=== PATIENT | female | born 1965 | race Caucasian/White ===

== ENCOUNTER 2017-06-17 20:00 | Emergency (ER) | payer BC ==
[2017-06-17] MEDS ORDERED: Ibuprofen TAB* 200 MG PO ONE (21:21)
--- NOTE | 2017-06-17 21:22 | UC ---
Hand/Wrist HPI - HPI Summary HPI Summary: 51 yo female fell today going down stairs got right hand caught btw rail and wall right handed has not taken anything for pain - History Of Current Complaint Chief Complaint: UCUpperExtremity Stated Complaint: RIGHT HAND INJURY Time Seen by Provider: 06/17/17 21:17 Hx Obtained From: Patient Onset/Duration: Sudden Onset, Lasting Hours Severity Initially: Severe Severity Currently: Severe Pain Intensity: 8 Pain Scale Used: 0-10 Numeric Character Of Pain: Sharp, Aching, Throbbing Aggravating Factor(s): Movement Alleviating Factor(s): Ice, Elevation Associated Signs And Symptoms: Positive: Swelling Related History: Dominant Hand Right - Allergies/Home Medications Allergies/Adverse Reactions: Allergies Allergy/AdvReac Type Severity Reaction Status Date / Time Penicillins Allergy Hives Verified 06/17/17 21:00 Home Medications: Home Medications NK [No Home Medications Reported] 06/17/17 [History Confirmed 06/17/17] PMH/Surg Hx/FS Hx/Imm Hx Previously Healthy: Yes Cardiovascular History: Hypertension - not on meds - Surgical History Surgical History: Yes Surgery Procedure, Year, and Place: Hysterectomy. Gallbladder - Family History Known Family History: Positive: Hypertension - Social History Alcohol Use: Weekly Substance Use Type: None Smoking Status (MU): Light Every Day Tobacco Smoker Type: Cigarettes Amount Used/How Often: 8 CIGS/DAY Review of Systems Constitutional: Negative Skin: Bruising Eyes: Negative ENT: Negative Respiratory: Negative Cardiovascular: Negative Gastrointestinal: Negative Genitourinary: Negative Motor: Negative Neurovascular: Negative Musculoskeletal: Edema - dorsum of right hand Neurological: Negative Psychological: Negative Is Patient Immunocompromised?: No All Other Systems Reviewed And Are Negative: Yes Physical Exam Triage Information Reviewed: Yes Appearance: Well-Appearing, Well-Nourished, Pain Distress Vital Signs: Initial Vital Signs Temp 98.1 F 06/17/17 20:54 Pulse 80 06/17/17 20:54 Resp 16 06/17/17 20:54 BP 172/92 06/17/17 20:54 Pulse Ox 98 06/17/17 20:54 Eyes: Positive: Conjunctiva Clear ENT: Positive: Hearing grossly normal. Negative: Nasal congestion, Nasal drainage, Trismus, Muffled voice, Hoarse voice Neck: Positive: Supple Respiratory: Positive: Lungs clear, Normal breath sounds, No respiratory distress, No accessory muscle use Cardiovascular: Positive: RRR, No Murmur Musculoskeletal: Positive: ROM Limited @ - right finger, Edema @ - dorsum or right hand Neurological: Positive: Alert Psychological Exam: Normal Skin Exam: Normal Diagnostics - Radiology No standard instances Xray Interpretation: No Acute Changes Radiology Interpretation Completed By: Radiologist Hand/Wrist Course/Dx - Differential Dx/Diagnosis Provider Diagnoses: right hand contusion/sprain Discharge - Sign-Out/Discharge Documenting (check all that apply): Discharge - Discharge Plan Condition: Stable Disposition: HOME Patient Education Materials: Sprain (ED), Contusion in Adults (ED) Referrals: Jorge Cohen MD [Medical Doctor] - As Soon As Possible Additional Instructions: rest elevate cock up splint advil call you MD to restart you BP meds - Billing Disposition and Condition Condition: STABLE Disposition: HOME Images Hands: 1 - dorsal hand edema
--- NOTE | 2017-06-17 22:01 | RAD ---
INDICATION: Right hand injury. TECHNIQUE: 4 views of the right hand were obtained. FINDINGS: There is ulnar minus variance of 5 mm. Bones are otherwise in normal alignment. No fracture is seen. Joint spaces appear maintained. IMPRESSION: NO EVIDENCE FOR FRACTURE.
== END 2017-06-17 22:20 | disposition home or self-care (01) ==
LOC: UCCORT 20:00
DX: S63.91XA Sprain of unspecified part of right wrist and hand, initial encounter (principal); I10 Essential (primary) hypertension; F17.210 Nicotine dependence, cigarettes, uncomplicated; Z88.0 Allergy status to penicillin; W23.0XXA Caught, crushed, jammed, or pinched between moving objects, initial encounter; Y92.9 Unspecified place or not applicable
CPT/HCPCS: 99203; A9270-GY; G0463

== ENCOUNTER 2022-09-09 15:35 | Inpatient (IN) ==
[2022-09-09 16:14] LABS: ABS Basophils 0.1 10^3/uL (0.0-0.1); ABS Eosinophils 0.2 10^3/uL (0.0-0.5); ABS Monocytes 0.5 10^3/uL (0.0-0.9); ABS Neutrophils 5.2 10^3/uL (1.5-7.6); ABS Nucleated RBC 0.01 10^3/ul; Eosinophil % 2.2 %; Hematocrit 45.9 % (35-45); Hemoglobin 15.6 g/dL (11.5-14.3); Lymphocyte % 33.4 %; Mean Corpuscular Hemoglobin 30.9 pg (27-33); Mean Corpuscular Volume 90.7 fL (80-97); Mean Platelet Volume 8.4 fL (7.5-11.2); Nucleated Red Blood Cells % 0.1 /100 WBC (0.0-0.4); Platelet Count 234 10^3/uL (150-450); Red Blood Count 5.06 10^6/uL (3.63-4.92); Red Cell Distribution Width 14.4 % (12-17); White Blood Count 9.1 10^3/uL (3.8-11.8)
[2022-09-09 16:20] LABS: INR 1.19 (0.88-1.18)
[2022-09-09 16:36] LABS: Albumin 4.1 g/dL (3.2-5.2); Albumin/Globulin Ratio 1.2 (1-3); Calcium 9.5 mg/dL (8.6-10.3); Creatinine, Serum 0.42 mg/dL (0.51-0.95); Globulin 3.5 g/dL (2-4); Potassium 2.8 mmol/L (3.5-5.0); Total Bilirubin 0.9 mg/dL (0.2-1.0); Total Protein 7.6 g/dL (6.4-8.9)
[2022-09-09] MEDS ORDERED: Potassium EFFERVES 25 meq TAB PO ONE (16:39)
[2022-09-09] MEDS: KCL 20 MEQ/100 ML IVPREMIX 20 MEQ/100 ML BAG IV SCH ×2 (17:00→18:57)
[2022-09-09 17:15] LABS: Magnesium 1.6 mg/dL (1.9-2.7)
[2022-09-09] MEDS ORDERED: Magnesium Sulfate 2 gm BAG 2 GM/50 ML BAG IVPB ONE (17:27)
[2022-09-09 17:52] LABS: High Sensitivity Troponin 1 Hr 9 pg/mL (<15)
[2022-09-09] MEDS ORDERED: Thiamine 100 MG/ML 2 ml VIAL (200 mg) IM ONE (19:20)
[2022-09-09] MEDS ORDERED: Lorazepam PYXIS KEY PRN (19:35)
[2022-09-09] MEDS ORDERED: LORazepam 2 mg VIAL 1 ml IM SCH (20:00)
[2022-09-09] MEDS: Multivitamins/Minerals TAB PO SCH (20:18)
[2022-09-09] MEDS ORDERED: Heparin 5000 UNITS/ML 1 mL VIAL SUBCUT ONE (22:01)
[2022-09-09] MEDS ORDERED: Labetalol IV 5 MG/ML 20 ml VIAL IV PUSH PRN (22:31)
[2022-09-09] MEDS ORDERED: NS 0.9% 1000 ml BAG 1,000 ML IV SCH (23:55)
[2022-09-10 04:45] LABS: Creatinine, Serum 0.53 mg/dL (0.51-0.95); Potassium 3.9 mmol/L (3.5-5.0); eGFR CKD-EPI 107.8 (>60)
[2022-09-10] MEDS ORDERED: Potassium Chlor 10 meq TAB PO ONE (07:39)
[2022-09-10] MEDS ORDERED: Heparin 2 UNITS/ML 1000 mls 2,000 ML IV ONE (09:35)
[2022-09-10] MEDS ORDERED: Heparin 1,000 UNIT/ML 10 ml (10,000 UNITS) CATHLAB/DIALYSIS ONE (09:35)
[2022-09-10] MEDS ORDERED: nitroGLYCERIN DRIP 25,000 MCG/250 ML BTL ONE (09:35)
[2022-09-10] MEDS ORDERED: VERAPAMIL 2.5 MG/ML 2 ML VIAL ** 5 mg/2 ml ONE (09:35)
[2022-09-10] MEDS ORDERED: Midazolam 5 mg/5 ml VIAL 1 mg/ml 5 ml VIAL (5 mg) ONE (09:35)
[2022-09-10] MEDS ORDERED: fentaNYL 100 mcg/2 ml 50 MCG/ML VIAL ONE (09:35)
[2022-09-10] MEDS ORDERED: Iohexol 350 (CONTRAST) 100 ML PAK IV ONE (09:36)
[2022-09-10] MEDS ORDERED: Iohexol 350 (CONTRAST) 200 ML MDV IV ONE (09:36)
[2022-09-10] MEDS ORDERED: Lidocaine 1% MPF 5 ML VIAL ONE (09:36)
[2022-09-10] MEDS ORDERED: Bivalirudin 250 MG VIAL ONE (10:32)
[2022-09-10] MEDS ORDERED: Metoprolol Tartrate 5 mg VIAL 5 ml VIAL (1 mg/ml) ONE (10:49)
[2022-09-10 12:46] LABS: ABS Basophils 0.1 10^3/uL (0.0-0.1); ABS Eosinophils 0.1 10^3/uL (0.0-0.5); ABS Lymphocytes 2.8 10^3/uL (1.0-4.8); ABS Monocytes 0.4 10^3/uL (0.0-0.9); ABS Neutrophils 4.9 10^3/uL (1.5-7.6); ABS Nucleated RBC 0.01 10^3/ul; Eosinophil % 1.8 %; Hematocrit 45.4 % (35-45); Hemoglobin 15.4 g/dL (11.5-14.3); Lymphocyte % 33.8 %; Mean Corpuscular Hemoglobin 30.9 pg (27-33); Mean Corpuscular Hgb Conc 33.9 g/dL (31-36); Mean Platelet Volume 8.4 fL (7.5-11.2); Nucleated Red Blood Cells % 0.1 /100 WBC (0.0-0.4); Platelet Count 227 10^3/uL (150-450); Red Blood Count 4.99 10^6/uL (3.63-4.92); Red Cell Distribution Width 14.6 % (12-17); White Blood Count 8.4 10^3/uL (3.8-11.8)
[2022-09-10] MEDS ORDERED: Lactated Ringers 1000 ml BAG 1,000 ML IV ONE (12:53)
[2022-09-10 13:06] LABS: Calcium 9.1 mg/dL (8.6-10.3); Creatinine, Serum 0.42 mg/dL (0.51-0.95); Potassium 3.8 mmol/L (3.5-5.0)
[2022-09-10] MEDS ORDERED: hydrALAZINE 20 mg/ml 1 ML Vial IV IV SLOW PU PRN ×3 (13:24→17:47)
[2022-09-10] MEDS ORDERED: Labetalol IV 5 MG/ML 20 ml VIAL IV PUSH PRN (13:24)
[2022-09-10] MEDS: Multivitamins/Minerals TAB PO SCH (13:43)
[2022-09-10 14:02] LABS: High Sensitivity Troponin 1 Hr 10 pg/mL (<15)
[2022-09-10 20:05] LABS: ABS Basophils 0.1 10^3/uL (0.0-0.1); ABS Eosinophils 0.2 10^3/uL (0.0-0.5); ABS Lymphocytes 2.4 10^3/uL (1.0-4.8); ABS Monocytes 0.6 10^3/uL (0.0-0.9); ABS Neutrophils 6.6 10^3/uL (1.5-7.6); ABS Nucleated RBC 0.01 10^3/ul; Eosinophil % 2.2 %; Hematocrit 40.8 % (35-45); Hemoglobin 13.7 g/dL (11.5-14.3); Mean Corpuscular Hemoglobin 30.8 pg (27-33); Mean Corpuscular Hgb Conc 33.5 g/dL (31-36); Mean Corpuscular Volume 91.9 fL (80-97); Mean Platelet Volume 8.3 fL (7.5-11.2); Nucleated Red Blood Cells % 0.1 /100 WBC (0.0-0.4); Platelet Count 226 10^3/uL (150-450); Red Blood Count 4.44 10^6/uL (3.63-4.92); Red Cell Distribution Width 14.8 % (12-17); White Blood Count 9.8 10^3/uL (3.8-11.8)
[2022-09-10] MEDS ORDERED: Iohexol 350 (CONTRAST) 500 ML MDV IV ONE (20:43)
[2022-09-10] MEDS ORDERED: Pantoprazole VIAL 40 MG VIAL IV ONE (21:00)
[2022-09-10] MEDS: Pantoprazole 80 mg in NS BAG 80 MG/250 ML BAG IV SCH (21:02)
[2022-09-10 21:29] LABS: Hematocrit 29.2 % (35-45); Hemoglobin 9.5 g/dL (11.5-14.3)
[2022-09-10] MEDS ORDERED: Heparin 5000 UNITS/ML 1 mL VIAL SUBCUT SCH (22:00)
[2022-09-10 22:31] LABS: Hematocrit 41.9 % (35-45); Hemoglobin 14.2 g/dL (11.5-14.3)
[2022-09-10] MEDS ORDERED: PEG 3000 GI LAVAGE 1 GALLON PO ONE (22:43)
[2022-09-10 22:49] LABS: Calcium 9.1 mg/dL (8.6-10.3); Creatinine, Serum 0.52 mg/dL (0.51-0.95); Potassium 3.9 mmol/L (3.5-5.0); eGFR CKD-EPI 108.3 (>60)
[2022-09-11 01:32] LABS: Hematocrit 42.9 % (35-45); Hemoglobin 14.5 g/dL (11.5-14.3)
[2022-09-11 04:52] LABS: ABS Basophils 0.1 10^3/uL (0.0-0.1); ABS Eosinophils 0.2 10^3/uL (0.0-0.5); ABS Lymphocytes 2.1 10^3/uL (1.0-4.8); ABS Monocytes 0.6 10^3/uL (0.0-0.9); ABS Neutrophils 6.9 10^3/uL (1.5-7.6); ABS Nucleated RBC 0.01 10^3/ul; Eosinophil % 2.1 %; Hematocrit 42.6 % (35-45); Hemoglobin 14.6 g/dL (11.5-14.3); Lymphocyte % 21.6 %; Mean Corpuscular Hemoglobin 31.8 pg (27-33); Mean Corpuscular Hgb Conc 34.3 g/dL (31-36); Mean Corpuscular Volume 92.7 fL (80-97); Mean Platelet Volume 8.4 fL (7.5-11.2); Nucleated Red Blood Cells % 0.1 /100 WBC (0.0-0.4); Platelet Count 221 10^3/uL (150-450); Red Blood Count 4.59 10^6/uL (3.63-4.92); Red Cell Distribution Width 14.7 % (12-17); White Blood Count 9.9 10^3/uL (3.8-11.8)
[2022-09-11 05:11] LABS: Calcium 9.3 mg/dL (8.6-10.3); Creatinine, Serum 0.56 mg/dL (0.51-0.95); Phosphorus 2.3 mg/dL (2.5-5.0); Potassium 4.2 mmol/L (3.5-5.0); eGFR CKD-EPI 106.4 (>60)
[2022-09-11] MEDS: Pantoprazole 80 mg in NS BAG 80 MG/250 ML BAG IV SCH (07:13)
[2022-09-11] MEDS ORDERED: PEG 3000 GI LAVAGE 1 GALLON PO ONE (07:58)
[2022-09-11] MEDS: Multivitamins/Minerals TAB PO SCH (08:09)
[2022-09-11 09:20] LABS: Hematocrit 43.9 % (35-45); Mean Corpuscular Hemoglobin 31.2 pg (27-33); Mean Corpuscular Hgb Conc 34.2 g/dL (31-36); Mean Corpuscular Volume 91.4 fL (80-97); Mean Platelet Volume 8.5 fL (7.5-11.2); Platelet Count 240 10^3/uL (150-450); Red Blood Count 4.81 10^6/uL (3.63-4.92); Red Cell Distribution Width 14.7 % (12-17); White Blood Count 9.6 10^3/uL (3.8-11.8)
[2022-09-11 09:38] LABS: HDL Cholesterol 49.7 mg/dL
[2022-09-11] MEDS ORDERED: Midazolam 10 mg/10 ml VIAL 1 mg/ml 10 ml VIAL (10 mg) ONE (12:47)
[2022-09-11] MEDS ORDERED: fentaNYL 100 mcg/2 ml 50 MCG/ML VIAL ONE (12:47)
[2022-09-11] MEDS ORDERED: fentaNYL 100 mcg/2 ml 50 MCG/ML VIAL IV SLOW PU ONE (12:53)
[2022-09-11] MEDS ORDERED: Ondansetron 4 mg VIAL 2 MG/ML 2 ml VIAL IV PRN (12:53)
[2022-09-11] MEDS ORDERED: Midazolam 10 mg/10 ml VIAL 1 mg/ml 10 ml VIAL (10 mg) IV SLOW PU ONE (12:53)
[2022-09-11] MEDS: Lactated Ringers 1000 ml BAG 1,000 ML IV ONE (14:39)
[2022-09-11 16:59] LABS: Hematocrit 40.7 % (35-45); Hemoglobin 13.7 g/dL (11.5-14.3)
[2022-09-11] MEDS: Pantoprazole VIAL 40 MG VIAL IV SCH (20:37)
[2022-09-12 06:44] LABS: INR 1.08 (0.88-1.18)
[2022-09-12 07:09] LABS: Creatinine, Serum 0.56 mg/dL (0.51-0.95); Magnesium 2.1 mg/dL (1.9-2.7); eGFR CKD-EPI 106.4 (>60)
[2022-09-12] MEDS: Multivitamins/Minerals TAB PO SCH (08:31)
[2022-09-12] MEDS: Pantoprazole VIAL 40 MG VIAL IV SCH (08:31)
[2022-09-12 09:38] LABS: ABS Basophils 0.1 10^3/uL (0.0-0.1); ABS Eosinophils 0.3 10^3/uL (0.0-0.5); ABS Lymphocytes 2.5 10^3/uL (1.0-4.8); ABS Monocytes 0.6 10^3/uL (0.0-0.9); ABS Neutrophils 6.6 10^3/uL (1.5-7.6); ABS Nucleated RBC 0.01 10^3/ul; Eosinophil % 2.8 %; Hematocrit 41.3 % (35-45); Hemoglobin 13.6 g/dL (11.5-14.3); Lymphocyte % 24.7 %; Mean Corpuscular Hemoglobin 30.5 pg (27-33); Mean Corpuscular Hgb Conc 32.9 g/dL (31-36); Mean Corpuscular Volume 92.6 fL (80-97); Nucleated Red Blood Cells % 0.1 /100 WBC (0.0-0.4); Platelet Count 252 10^3/uL (150-450); Red Blood Count 4.46 10^6/uL (3.63-4.92); Red Cell Distribution Width 14.7 % (12-17); White Blood Count 10.1 10^3/uL (3.8-11.8)
[2022-09-12] MEDS ORDERED: Propofol 10 MG/ML 20 ML BTL ONE (12:27)
[2022-09-12] MEDS ORDERED: Lidocaine 2% PF 5 ML VIAL ONE (12:27)
[2022-09-12] MEDS: Lactated Ringers 1000 ml BAG 1,000 ML IV ONE (14:13)
[2022-09-13 04:25] LABS: ABS Basophils 0.1 10^3/uL (0.0-0.1); ABS Eosinophils 0.3 10^3/uL (0.0-0.5); ABS Lymphocytes 2.5 10^3/uL (1.0-4.8); ABS Monocytes 0.7 10^3/uL (0.0-0.9); ABS Neutrophils 6.4 10^3/uL (1.5-7.6); ABS Nucleated RBC 0.02 10^3/ul; Eosinophil % 2.6 %; Hematocrit 40.2 % (35-45); Hemoglobin 13.5 g/dL (11.5-14.3); Lymphocyte % 25.2 %; Mean Corpuscular Hemoglobin 30.7 pg (27-33); Mean Corpuscular Hgb Conc 33.7 g/dL (31-36); Mean Corpuscular Volume 91.1 fL (80-97); Mean Platelet Volume 8.5 fL (7.5-11.2); Nucleated Red Blood Cells % 0.2 /100 WBC (0.0-0.4); Platelet Count 231 10^3/uL (150-450); Red Blood Count 4.42 10^6/uL (3.63-4.92); Red Cell Distribution Width 14.5 % (12-17); White Blood Count 9.9 10^3/uL (3.8-11.8)
[2022-09-13 04:42] LABS: Calcium 9.2 mg/dL (8.6-10.3); Creatinine, Serum 0.55 mg/dL (0.51-0.95); Potassium 3.8 mmol/L (3.5-5.0); eGFR CKD-EPI 106.8 (>60)
[2022-09-13] MEDS: Multivitamins/Minerals TAB PO SCH (07:50)
[2022-09-13 13:44] VITALS: BP 148/83
== END 2022-09-13 14:05 | disposition home or self-care (01) | DRG 246 ==
LOC: ED 15:35 → SUATTDRO 19:15 → EDHOLD 19:15 → INTOOBSV 19:15 → EDHOLD 09-10 09:04 → AA 09-10 09:57 → ICU 09-10 11:54
PROVIDERS: ADMIT Internal Medicine; ATTEND Internal Medicine

== ENCOUNTER 2022-10-01 18:11 | Inpatient (IN) ==
[2022-10-01 19:59] LABS: ABS Basophils 0.3 10^3/uL (0.0-0.1); ABS Eosinophils 0.3 10^3/uL (0.0-0.5); ABS Lymphocytes 1.6 10^3/uL (1.0-4.8); ABS Monocytes 0.7 10^3/uL (0.0-0.9); ABS Neutrophils 6.4 10^3/uL (1.5-7.6); ABS Nucleated RBC 0.01 10^3/ul; Eosinophil % 3.2 %; Hematocrit 34.1 % (35-45); Hemoglobin 12.2 g/dL (11.5-14.3); Lymphocyte % 17.2 %; Mean Corpuscular Hemoglobin 31.5 pg (27-33); Mean Corpuscular Hgb Conc 35.9 g/dL (31-36); Mean Corpuscular Volume 87.7 fL (80-97); Mean Platelet Volume 6.9 fL (7.5-11.2); Nucleated Red Blood Cells % 0.1 /100 WBC (0.0-0.4); Platelet Count 278 10^3/uL (150-450); Red Blood Count 3.89 10^6/uL (3.63-4.92); Red Cell Distribution Width 14.4 % (12-17); White Blood Count 9.3 10^3/uL (3.8-11.8)
[2022-10-01 20:16] LABS: Albumin 3.8 g/dL (3.2-5.2); Calcium 9.6 mg/dL (8.6-10.3); Creatinine, Serum 9.01 mg/dL (0.51-0.95); Magnesium 1.8 mg/dL (1.9-2.7); Potassium 3.2 mmol/L (3.5-5.0); Total Bilirubin 0.4 mg/dL (0.2-1.0); Total Protein 7.8 g/dL (6.4-8.9); eGFR CKD-EPI 4.7 (>60)
[2022-10-01 20:43] LABS: Urine Appearance Clear; Urine Bilirubin Negative (Negative); Urine Blood 2+ (Negative); Urine Color Straw; Urine Glucose 1+(50 mg/dL) (Negative); Urine Ketones Negative (Negative); Urine Nitrite Negative (Negative); Urine Protein 1+(30 mg/dL) (Negative); Urine Specific Gravity 1.004 (1.002-1.030); Urine Urobilinogen Negative (Negative)
[2022-10-01 20:51] LABS: Urine Bacteria Absent (Absent); Urine Red Blood Cell Trace(0-2/hpf) (Absent); Urine Squamous Epithelial Cell Present (Absent); Urine White Blood Cell Absent (Absent)
[2022-10-01] MEDS ORDERED: Potassium Chlor 20 meq TAB.ER PO ONE (20:58)
[2022-10-01] MEDS ORDERED: Lactated Ringers 1000 ml BAG 1,000 ML IV ONE (21:00)
[2022-10-01] MEDS ORDERED: HYDROmorphone 0.5 MG/0.5 ML SYRINGE IV ONE (23:20)
[2022-10-01] MEDS: Heparin 5000 UNITS/ML 1 mL VIAL SUBCUT SCH (23:28)
[2022-10-02] MEDS ORDERED: Magnesium Sulfate 2 gm BAG 2 GM/50 ML BAG IVPB ONE (01:16)
[2022-10-02] MEDS ORDERED: HYDROmorphone 0.5 MG/0.5 ML SYRINGE IV SLOW PU ONE ×3 (02:13→09:43)
[2022-10-02 02:26] LABS: Urine Osmo 127 mOsm/kg (150-1150)
[2022-10-02 02:29] LABS: Urine Potassium Concentration 6.5 mmol/L
[2022-10-02 02:50] LABS: Creatinine, Serum 9.19 mg/dL (0.51-0.95); Renal Sodium Excretion 5.19 %; Urine Creatinine Concentration 38.68 mg/dL (20.00-320.00)
[2022-10-02 04:27] LABS: Creatinine, Serum 8.79 mg/dL (0.51-0.95); Magnesium 2.8 mg/dL (1.9-2.7); Potassium 3.8 mmol/L (3.5-5.0); eGFR CKD-EPI 4.8 (>60)
[2022-10-02] MEDS ORDERED: LORazepam 2 mg VIAL 1 ml IV PUSH SCH (05:00)
[2022-10-02] MEDS: Heparin 5000 UNITS/ML 1 mL VIAL SUBCUT SCH ×3 (06:14→21:12)
[2022-10-02] MEDS ORDERED: Lactated Ringers 1000 ml BAG 1,000 ML IV ONE (07:30)
[2022-10-02 13:42] LABS: Hematocrit 32.6 % (35-45); Hemoglobin 11.2 g/dL (11.5-14.3); Mean Corpuscular Hgb Conc 34.5 g/dL (31-36); Mean Corpuscular Volume 89.6 fL (80-97); Mean Platelet Volume 7.3 fL (7.5-11.2); Platelet Count 287 10^3/uL (150-450); Red Blood Count 3.63 10^6/uL (3.63-4.92); Red Cell Distribution Width 13.9 % (12-17); White Blood Count 9.2 10^3/uL (3.8-11.8)
[2022-10-02 14:11] LABS: Hepatitis B Surface Ab Not Immune (Immune); Hepatitis C Antibody Negative (Negative)
[2022-10-02 14:23] LABS: Calcium 8.8 mg/dL (8.6-10.3); Potassium 4.2 mmol/L (3.5-5.0)
[2022-10-02 14:29] LABS: Creatinine, Serum 8.43 mg/dL (0.51-0.95); eGFR CKD-EPI 5.1 (>60)
[2022-10-02] MEDS ORDERED: HYDROmorphone 0.5 MG/0.5 ML SYRINGE IV SLOW PU PRN (14:56)
[2022-10-02 22:11] LABS: Hepatitis B Surface Antigen Nonreactive (Nonreactive)
[2022-10-03] MEDS ORDERED: Acetaminophen IV 1 GM/100ML 1,000 MG/100 ML BAG IV ONE (04:23)
[2022-10-03 06:05] LABS: ABS Basophils 0.2 10^3/uL (0.0-0.1); ABS Eosinophils 0.2 10^3/uL (0.0-0.5); ABS Lymphocytes 1.1 10^3/uL (1.0-4.8); ABS Monocytes 0.7 10^3/uL (0.0-0.9); ABS Neutrophils 3.9 10^3/uL (1.5-7.6); ABS Nucleated RBC 0.01 10^3/ul; Eosinophil % 3.9 %; Hematocrit 32.6 % (35-45); Hemoglobin 11.5 g/dL (11.5-14.3); Lymphocyte % 17.7 %; Mean Corpuscular Hemoglobin 30.9 pg (27-33); Mean Corpuscular Hgb Conc 35.1 g/dL (31-36); Mean Corpuscular Volume 88.1 fL (80-97); Mean Platelet Volume 6.7 fL (7.5-11.2); Nucleated Red Blood Cells % 0.1 /100 WBC (0.0-0.4); Platelet Count 263 10^3/uL (150-450); Red Cell Distribution Width 14.2 % (12-17)
[2022-10-03 06:18] LABS: Calcium 9.3 mg/dL (8.6-10.3); Creatinine, Serum 8.02 mg/dL (0.51-0.95); Potassium 4.1 mmol/L (3.5-5.0); eGFR CKD-EPI 5.4 (>60)
[2022-10-03] MEDS: Heparin 5000 UNITS/ML 1 mL VIAL SUBCUT SCH ×3 (06:20→20:59)
[2022-10-03] MEDS ORDERED: Lactated Ringers 1000 ml BAG 1,000 ML IV ONE (10:02)
[2022-10-03 10:26] LABS: Magnesium 2.4 mg/dL (1.9-2.7)
[2022-10-03] MEDS: Multivitamins/Minerals TAB PO SCH (10:54)
[2022-10-04] MEDS: Heparin 5000 UNITS/ML 1 mL VIAL SUBCUT SCH ×3 (06:18→21:04)
[2022-10-04] MEDS: Multivitamins/Minerals TAB PO SCH (07:30)
[2022-10-04] MEDS: Lactated Ringers 1000 ml BAG 1,000 ML IV SCH ×2 (07:53→15:56)
[2022-10-04 08:04] LABS: ABS Eosinophils 0.3 10^3/uL (0.0-0.5); ABS Lymphocytes 1.3 10^3/uL (1.0-4.8); ABS Monocytes 0.7 10^3/uL (0.0-0.9); ABS Neutrophils 3.8 10^3/uL (1.5-7.6); ABS Nucleated RBC 0.01 10^3/ul; Eosinophil % 4.6 %; Hematocrit 33.6 % (35-45); Hemoglobin 11.7 g/dL (11.5-14.3); Lymphocyte % 21.2 %; Mean Corpuscular Hemoglobin 31.1 pg (27-33); Mean Corpuscular Hgb Conc 34.7 g/dL (31-36); Mean Corpuscular Volume 89.7 fL (80-97); Mean Platelet Volume 6.8 fL (7.5-11.2); Nucleated Red Blood Cells % 0.1 /100 WBC (0.0-0.4); Platelet Count 267 10^3/uL (150-450); Red Blood Count 3.75 10^6/uL (3.63-4.92); Red Cell Distribution Width 14.4 % (12-17); White Blood Count 6.1 10^3/uL (3.8-11.8)
[2022-10-04 08:29] LABS: Calcium 9.3 mg/dL (8.6-10.3); Creatinine, Serum 7.52 mg/dL (0.51-0.95); Potassium 4.2 mmol/L (3.5-5.0); eGFR CKD-EPI 5.8 (>60)
[2022-10-04 17:26] LABS: Kappa Free Light Chain 14.2 mg/dL
[2022-10-05 06:59] LABS: ABS Basophils 0.2 10^3/uL (0.0-0.1); ABS Eosinophils 0.3 10^3/uL (0.0-0.5); ABS Lymphocytes 1.5 10^3/uL (1.0-4.8); ABS Monocytes 0.6 10^3/uL (0.0-0.9); ABS Neutrophils 3.6 10^3/uL (1.5-7.6); Eosinophil % 5.1 %; Hematocrit 31.2 % (35-45); Hemoglobin 10.8 g/dL (11.5-14.3); Lymphocyte % 24.7 %; Mean Corpuscular Hemoglobin 31.1 pg (27-33); Mean Corpuscular Hgb Conc 34.5 g/dL (31-36); Mean Corpuscular Volume 90.2 fL (80-97); Mean Platelet Volume 6.8 fL (7.5-11.2); Platelet Count 262 10^3/uL (150-450); Red Blood Count 3.46 10^6/uL (3.63-4.92); Red Cell Distribution Width 14.4 % (12-17); White Blood Count 6.2 10^3/uL (3.8-11.8)
[2022-10-05] MEDS: Heparin 5000 UNITS/ML 1 mL VIAL SUBCUT SCH (07:03)
[2022-10-05 07:16] LABS: Calcium 9.1 mg/dL (8.6-10.3); Creatinine, Serum 6.65 mg/dL (0.51-0.95); Potassium 3.9 mmol/L (3.5-5.0); eGFR CKD-EPI 6.8 (>60)
[2022-10-05] MEDS: Multivitamins/Minerals TAB PO SCH (08:07)
[2022-10-05 08:20] LABS: Magnesium 1.7 mg/dL (1.9-2.7); Phosphorus 4.7 mg/dL (2.5-5.0)
[2022-10-05 10:36] VITALS: BP 166/90
[2022-10-05 10:54] LABS: Hematocrit 31.9 % (35-45); Hemoglobin 11.1 g/dL (11.5-14.3); Mean Corpuscular Hemoglobin 31.3 pg (27-33); Mean Corpuscular Hgb Conc 34.8 g/dL (31-36); Mean Corpuscular Volume 89.9 fL (80-97); Mean Platelet Volume 6.6 fL (7.5-11.2); Platelet Count 249 10^3/uL (150-450); Red Blood Count 3.54 10^6/uL (3.63-4.92); Red Cell Distribution Width 14.6 % (12-17); White Blood Count 5.3 10^3/uL (3.8-11.8)
[2022-10-05 14:54] LABS: Myeloperoxidase Antibody <0.2 U; Proteinase 3 <0.2 U
[2022-10-05 15:53] LABS: C-ANCA Negative (Negative); P-ANCA Negative (Negative)
[2022-10-07 12:03] LABS: Complement C3 146 mg/dL (75 - 175)
[2022-10-07 16:22] LABS: PLA2R, Immunofluorescence, S Negative (Negative)
[2022-10-08 10:28] LABS: Albumin 2.9 g/dL (3.4-4.7); Flag, M-protein Isotype Negative (Negative); Total Protein 6.9 g/dL (6.3 - 7.9)
== END 2022-10-05 12:50 | disposition home or self-care (01) | DRG 682 ==
LOC: ED 18:11 → EDHOLD 22:54 → SUATTDRO 22:54 → MED 10-02 00:25
PROVIDERS: ADMIT Hospitalist; ATTEND Internal Medicine

== ENCOUNTER 2022-10-12 21:55 | Observation (INO) ==
[2022-10-12 22:37] LABS: ABS Basophils 0.1 10^3/uL (0.0-0.1); ABS Eosinophils 0.3 10^3/uL (0.0-0.5); ABS Lymphocytes 2.4 10^3/uL (1.0-4.8); ABS Monocytes 0.5 10^3/uL (0.0-0.9); ABS Neutrophils 5.4 10^3/uL (1.5-7.6); Eosinophil % 3.3 %; Hematocrit 32.8 % (35-45); Hemoglobin 11.3 g/dL (11.5-14.3); Lymphocyte % 28.2 %; Mean Corpuscular Hgb Conc 34.4 g/dL (31-36); Mean Corpuscular Volume 90.2 fL (80-97); Mean Platelet Volume 6.9 fL (7.5-11.2); Platelet Count 241 10^3/uL (150-450); Red Blood Count 3.63 10^6/uL (3.63-4.92); Red Cell Distribution Width 14.8 % (12-17); White Blood Count 8.7 10^3/uL (3.8-11.8)
[2022-10-12 22:44] LABS: Rapid Strep Molecular Negative (Negative)
[2022-10-12 22:49] LABS: INR 1.14 (0.88-1.18)
[2022-10-12 22:53] LABS: Albumin 3.8 g/dL (3.2-5.2); Albumin/Globulin Ratio 0.9 (1-3); Creatinine, Serum 3.05 mg/dL (0.51-0.95); Globulin 4.1 g/dL (2-4); Magnesium 1.6 mg/dL (1.9-2.7); Potassium 3.8 mmol/L (3.5-5.0); Total Bilirubin 0.5 mg/dL (0.2-1.0); Total Protein 7.9 g/dL (6.4-8.9); eGFR CKD-EPI 17.2 (>60)
[2022-10-12] MEDS ORDERED: Magnesium Sulfate 2 gm BAG 2 GM/50 ML BAG IVPB ONE (23:33)
[2022-10-12 23:38] LABS: TSH Ultra Thyroid Stim Horm 7.74 mcIU/mL (0.34-5.60)
[2022-10-13] MEDS ORDERED: LORazepam 2 mg VIAL 1 ml IV PUSH ONE (01:44)
[2022-10-13] MEDS ORDERED: Lorazepam PYXIS KEY PRN (01:44)
[2022-10-13 05:21] LABS: Urine Appearance Clear; Urine Bilirubin Negative (Negative); Urine Blood Negative (Negative); Urine Color Yellow; Urine Glucose Negative (Negative); Urine Ketones Negative (Negative); Urine Nitrite Negative (Negative); Urine Protein 1+(30 mg/dL) (Negative); Urine Specific Gravity 1.008 (1.002-1.030); Urine Urobilinogen Negative (Negative)
[2022-10-13 05:35] LABS: Urine Bacteria Absent (Absent); Urine Red Blood Cell Trace(0-2/hpf) (Absent); Urine Squamous Epithelial Cell Present (Absent); Urine White Blood Cell Trace(0-5/hpf) (Absent)
[2022-10-13] MEDS: Enoxaparin 30 MG/0.3 ML SYR SUBCUT SCH (05:43)
[2022-10-13] MEDS ORDERED: Magnesium Sulf 4 GM/100 ML IV 4,000 MG/100 ML BAG IVPB ONE (09:00)
[2022-10-13 16:57] LABS: Urine Benzodiazepine Screen Presumptive Positive (None Detect); Urine Cannabinoids Screen None Detected (None Detect); Urine Opiates Screen None Detected (None Detect)
[2022-10-13 17:12] LABS: Urine Buprenorphine Screen None Detected (None Detect); Urine Fentanyl Screen None Detected (None Detect); Urine Hydrocodone Screen None Detected (None Detect)
[2022-10-14] MEDS: Enoxaparin 30 MG/0.3 ML SYR SUBCUT SCH (04:51)
[2022-10-14 14:14] VITALS: BP 152/80
[2022-10-16 11:07] LABS: Anti Streptolysin O Antibody 134 IU/mL (0 - 530)
== END 2022-10-14 14:45 | disposition home or self-care (01) ==
LOC: ED 21:55 → EDHOLD 21:55 → SUATTDRO 10-13 03:19 → MEDTELE 10-13 04:29
PROVIDERS: ADMIT Internal Medicine; ATTEND Family Medicine